=== PATIENT | female | born 1990 | race Caucasian/White ===

== ENCOUNTER 2019-03-12 09:16 | Emergency (ER) | payer OTHER ==
[~2019-03-12] VITALS: Ht 160 cm; Wt 79.4 kg
== END 2019-03-12 17:18 | disposition home or self-care (01) ==
LOC: ER 09:16
DX: K52.9 Noninfective gastroenteritis and colitis, unspecified (principal)

== ENCOUNTER 2020-06-28 19:04 | Emergency (ER) | payer OTHER ==
[~2020-06-28] VITALS: Ht 160 cm; Wt 77.1 kg
[2020-06-28] MEDS ORDERED: METFORMIN HCL500 M4 PO (19:26)
[2020-06-28] MEDS ORDERED: SPIRONOLACTONE100 MG PO (19:27)
== END 2020-06-28 21:52 | disposition home or self-care (01) ==
LOC: ER 19:04
DX: R53.1 Weakness (principal)

== ENCOUNTER 2020-10-10 10:00 | Emergency (ER) | payer OTHER ==
[~2020-10-10] VITALS: Ht 160 cm; Wt 72.6 kg
[~2020-10-10 10:00] MED LIST: METFORMIN HCL500 M4 PO; SPIRONOLACTONE100 MG PO
[2020-10-10] MEDS ORDERED: KETO10TA2 PO (12:04)
[2020-10-10] MEDS ORDERED: NORFLEX100MG PO (12:04)
== END 2020-10-10 12:41 | disposition home or self-care (01) ==
LOC: ER 10:00
DX: M54.5 Low back pain (principal)